=== PATIENT | female | born 1945 | race Caucasian/White ===

== ENCOUNTER 2017-10-25 07:23 | Inpatient (IN) | payer OTHER ==
[~2017-10-25] VITALS: Ht 170.2 cm; Wt 82.1 kg
[2017-10-25 08:05] LABS: BASOPHIL (%) 0.7 % (0-1); BASOPHIL COUNT 0.1 K/uL (0-0.1); EOSINOPHIL (%) 2.4 % (0-5); EOSINOPHIL COUNT 0.2 K/uL (0-0.3); HEMATOCRIT 44.5 % (36.0-46.0); HEMOGLOBIN 14.7 G/DL (11.9-15.5); IMMATURE GRANULOCYTE (%) 0.3 % (0.0-0.7); LYMPHOCYTE (%) 52.5 % (15-42); LYMPHOCYTE COUNT 3.8 K/uL (1.0-2.8); MCH 30.6 PG (29.0-34.0); MCV 92.7 FL (83-99); MONOCYTE (%) 6.1 % (3-12); MONOCYTE COUNT 0.4 K/uL (0-0.8); NEUTROPHIL COUNT 2.7 K/uL (1.8-6.4); PLATELET COUNT 219 K/uL (156-360); RBC DIS.WIDTH-CV 13.2 % (11.8-14.6); RBC DIS.WIDTH-SD 44.9 % (39-53); WHITE BLOOD COUNT 7.2 K/uL (4.1-10.2)
[2017-10-25 08:29] LABS: ALBUMIN 4.2 G/DL (3.2-4.8); CHLORIDE 104 MEQ/L (99-109); POTASSIUM 3.9 MEQ/L (3.7-5.4); SODIUM 141 MEQ/L (136-147); TOTAL BILIRUBIN 0.3 MG/DL (0.0-1.0)
[2017-10-25 08:35] LABS: ALKALINE PHOSPHATASE 96 IU/L (3-129); ALT (GPT) 22 IU/L (3-49); AST (GOT) 22 IU/L (2-34); CREATININE 0.8 MG/DL (0.6-1.3); GFR ESTIMATE (CALCULATED) > 59 mL/min/; GLUCOSE 132 mg/dL (70-99); HDL CHOLESTEROL 37 MG/DL (Desirable>=50); LDL CHOLESTEROL 182 mg/dL (Desirable<100); NON-HDL CHOLESTEROL 210 mg/dL (Desirable<160); TOTAL CHOLESTEROL 247 mg/dL (Desirable<200); TOTAL PROTEIN 7.3 G/DL (6.4-8.3); TRIGLYCERIDES 141 MG/DL (Normal: <150); UREA NITROGEN (BUN) 9 mg/dL (9-23)
[2017-10-25 09:10] LABS: Estimated Average Glucose 137 mg/dL (70-123); HEMOGLOBIN A1c (GLYCOHEMOGLOB) 6.4 % HGB (Below 5.7)
[2017-10-25 09:16] LABS: APPEARANCE CLEAR ((CLEAR)); BILIRUBIN NEGATIVE; BLOOD NEGATIVE; COLOR YELLOW ((YELLOW)); GLUCOSE (STRIP) NEGATIVE; KETONES NEGATIVE; LEUKOCYTES NEGATIVE; NITRITE NEGATIVE; PROTEIN (STRIP) NEGATIVE; UCUL ADDED? NO; UROBILINOGEN 0.2 MG/DL (0.2-1.0)
[2017-10-25 09:25] LABS: TROP-I INTERPRETATION NEGATIVE; TROPONIN-I < 0.01 ng/mL (0.0-0.30)
[2017-10-25] MEDS ORDERED: OMEPRAZOLE40 M1 PO (11:01)
[2017-10-25] MEDS ORDERED: DULOXETINE HCL60 MG PO (11:01)
[2017-10-25] MEDS ORDERED: FISH OIL 1,0001 EAC7 PO (11:02)
[2017-10-25] MEDS ORDERED: TYLENOL EXTRA500 MG PO (11:02)
[2017-10-25] MEDS ORDERED: GLUCOSAMINE-CH1 EA45 PO (11:02)
[2017-10-25 13:10] VITALS: BP 143/74
[2017-10-25 16:59] VITALS: BP 141/68
[2017-10-25 19:53] VITALS: BP 131/60
[2017-10-25 23:37] VITALS: BP 117/61
[2017-10-26 03:37] VITALS: BP 120/64
[2017-10-26 07:59] VITALS: BP 140/75
[2017-10-26 08:57] LABS: HEMATOCRIT 39.6 % (36.0-46.0); HEMOGLOBIN 12.8 G/DL (11.9-15.5); MCH 29.9 PG (29.0-34.0); MCHC 32.3 G/DL (30.0-36.0); MCV 92.5 FL (83-99); PLATELET COUNT 179 K/uL (156-360); RBC DIS.WIDTH-CV 13.3 % (11.8-14.6); RBC DIS.WIDTH-SD 45.6 % (39-53); RED BLOOD COUNT 4.28 M/uL (3.80-5.20); WHITE BLOOD COUNT 5.5 K/uL (4.1-10.2)
[2017-10-26 09:29] LABS: CHLORIDE 108 MEQ/L (99-109); CREATININE 0.7 MG/DL (0.6-1.3); GFR ESTIMATE (CALCULATED) > 59 mL/min/; GLUCOSE 116 mg/dL (70-99); POTASSIUM 4.2 MEQ/L (3.7-5.4); SODIUM 143 MEQ/L (136-147); UREA NITROGEN (BUN) 7 mg/dL (9-23)
[2017-10-26 10:01] LABS: THYROTROPIN (TSH) 0.41 MIU/L (0.4-5.5)
[2017-10-26 12:12] VITALS: BP 124/60
[2017-10-26 15:59] VITALS: BP 126/70
[2017-10-26 23:38] VITALS: BP 128/58
[2017-10-27 03:24] VITALS: BP 125/59
[2017-10-27 07:02] VITALS: BP 126/73
[2017-10-27] MEDS ORDERED: ASPIR-LOW81 MG PO (09:39)
[2017-10-27] MEDS ORDERED: CLOPIDOGREL75 MG PO (09:39)
[2017-10-27] MEDS ORDERED: ATORVASTATIN CA80 MG PO (09:39)
[2017-10-27] MEDS ORDERED: NICOTINE PATCH1 EAC2 TD (09:39)
[2017-10-27 11:05] VITALS: BP 123/69
[2017-10-27] MEDS ORDERED: PEPCID20 MG PO (15:30)
[2017-10-27] MEDS ORDERED: HEPARIN LO100 UNIT/7 IV (15:32)
[2017-10-27] MEDS ORDERED: ZOFRAN4 MG/2 ML IV (15:33)
== END 2017-10-27 13:26 | DRG 66 ==
LOC: EME 07:23 → 5SOUTH 10:14 → EDOF 10:14 → ENRESERV 10:24 → EDOF 10:50 → ENRESERV 11:07 → 5SOUTH 12:43
PROVIDERS: Emergency Medicine; Hospitalist
DX: I63.132 Cerebral infarction due to embolism of left carotid artery (principal); I10 Essential (primary) hypertension; E11.9 Type 2 diabetes mellitus without complications; K21.9 Gastro-esophageal reflux disease without esophagitis; E78.5 Hyperlipidemia, unspecified; G89.29 Other chronic pain; M54.9 Dorsalgia, unspecified; F17.210 Nicotine dependence, cigarettes, uncomplicated; Z96.1 Presence of intraocular lens; Z85.42 Personal history of malignant neoplasm of other parts of uterus; Z90.710 Acquired absence of both cervix and uterus
CPT/HCPCS: 70450; 70496; 70498; 70551; 71020; 80048; 80053; 80061; 81003; 82948; 83036; 84443; 84484; 85025; 85027; 85730; 92610 GN; 93005; 93306; 93880; 97530 GO; 99281; 99285; J7030

== ENCOUNTER 2017-10-27 08:44 | Inpatient (IN) | payer OTHER ==
[~2017-10-27] VITALS: Ht 170.2 cm; Wt 80.5 kg
[~2017-10-27 08:44] MED LIST: DULOXETINE HCL60 MG PO; FISH OIL 1,0001 EAC7 PO; GLUCOSAMINE-CH1 EA45 PO; OMEPRAZOLE40 M1 PO; TYLENOL EXTRA500 MG PO
[2017-10-27] MEDS ORDERED: NICOTINE PATCH1 EAC2 TD (09:39)
[2017-10-27] MEDS ORDERED: ASPIR-LOW81 MG PO (09:39)
[2017-10-27] MEDS ORDERED: ATORVASTATIN CA80 MG PO (09:39)
[2017-10-27] MEDS ORDERED: CLOPIDOGREL75 MG PO (09:39)
[2017-10-27 13:53] VITALS: BP 134/72
[2017-10-27] MEDS ORDERED: PEPCID20 MG PO (15:30)
[2017-10-27] MEDS ORDERED: HEPARIN LO100 UNIT/7 IV (15:32)
[2017-10-27] MEDS ORDERED: ZOFRAN4 MG/2 ML IV (15:33)
[2017-10-27 23:53] VITALS: BP 125/64
[2017-10-28 05:21] VITALS: BP 131/68
[2017-10-28 15:56] VITALS: BP 135/60
[2017-10-29 05:18] VITALS: BP 134/61
[2017-10-29 06:20] LABS: BASOPHIL (%) 0.4 % (0-1); EOSINOPHIL COUNT 0.1 K/uL (0-0.3); HEMATOCRIT 43.2 % (36.0-46.0); HEMOGLOBIN 14.1 G/DL (11.9-15.5); IMMATURE GRANULOCYTE (%) 0.3 % (0.0-0.7); LYMPHOCYTE (%) 37.2 % (15-42); LYMPHOCYTE COUNT 2.7 K/uL (1.0-2.8); MCH 30.2 PG (29.0-34.0); MCHC 32.6 G/DL (30.0-36.0); MCV 92.5 FL (83-99); MONOCYTE (%) 7.3 % (3-12); MONOCYTE COUNT 0.5 K/uL (0-0.8); NEUTROPHIL (%) 52.8 % (45-76); NEUTROPHIL COUNT 3.8 K/uL (1.8-6.4); PLATELET COUNT 188 K/uL (156-360); RBC DIS.WIDTH-CV 13.4 % (11.8-14.6); RBC DIS.WIDTH-SD 45.8 % (39-53); RED BLOOD COUNT 4.67 M/uL (3.80-5.20); WHITE BLOOD COUNT 7.1 K/uL (4.1-10.2)
[2017-10-29 06:57] LABS: ALKALINE PHOSPHATASE 79 IU/L (3-129); ALT (GPT) 26 IU/L (3-49); AST (GOT) 20 IU/L (2-34); CHLORIDE 104 MEQ/L (99-109); CREATININE 0.8 MG/DL (0.6-1.3); GFR ESTIMATE (CALCULATED) > 59 mL/min/; GLUCOSE 116 mg/dL (70-99); POTASSIUM 4.4 MEQ/L (3.7-5.4); SODIUM 139 MEQ/L (136-147); TOTAL PROTEIN 6.3 G/DL (6.4-8.3); UREA NITROGEN (BUN) 18 mg/dL (9-23)
[2017-10-29 06:59] LABS: TOTAL BILIRUBIN 0.6 MG/DL (0.0-1.0)
[2017-10-29 16:04] VITALS: BP 131/64
[2017-10-30 06:09] VITALS: BP 119/60
[2017-10-30 15:53] VITALS: BP 124/59
[2017-10-31 05:48] VITALS: BP 107/53
[2017-10-31 15:25] VITALS: BP 147/75
[2017-10-31] MEDS ORDERED: TYLENOL REGULA325 MG PO (16:54)
[2017-10-31] MEDS ORDERED: LOVENOX40 MG/0.4 SC (16:55)
[2017-11-01] MEDS ORDERED: TRAMADOL HCL50 MG PO (13:29)
== END 2017-10-31 16:30 | disposition home health service (06) | DRG 945 ==
LOC: 3WEST 08:44
PROVIDERS: Psychiatry & Neurology Neurology
PROC: F07M7ZZ Manual Therapy Techniques Treatment of Musculoskeletal System - Whole Body (ICD-10-PCS; principal; 2017-10-27)
DX: R53.1 Weakness (principal); I63.9 Cerebral infarction, unspecified; I65.22 Occlusion and stenosis of left carotid artery; F17.200 Nicotine dependence, unspecified, uncomplicated; E11.9 Type 2 diabetes mellitus without complications; E78.5 Hyperlipidemia, unspecified; K21.9 Gastro-esophageal reflux disease without esophagitis; Z82.3 Family history of stroke; Z82.49 Family history of ischemic heart disease and other diseases of the circulatory system
CPT/HCPCS: 70551; 80053; 82948; 85025; 92507 GN; 92523 GN; 92526 GN; 97110 GO; 97530 GP; J1644; J1650; J2720

== ENCOUNTER 2017-10-31 15:50 | Inpatient (IN) | payer OTHER ==
[2017-10-31] VITALS (8 sets, daily range): BP systolic 127–151; BP diastolic 70–91
[~2017-10-31] VITALS: Ht 170.2 cm; Wt 79.6 kg
[~2017-10-31 15:50] MED LIST changes: +ASPIR-LOW81 MG PO; +ATORVASTATIN CA80 MG PO; +CLOPIDOGREL75 MG PO; +HEPARIN LO100 UNIT/7 IV; +NICOTINE PATCH1 EAC2 TD; +PEPCID20 MG PO; +ZOFRAN4 MG/2 ML IV
[2017-10-31] MEDS ORDERED: TYLENOL REGULA325 MG PO (16:54)
[2017-10-31] MEDS ORDERED: LOVENOX40 MG/0.4 SC (16:55)
[2017-11-01] VITALS (16 sets, daily range): BP systolic 105–144; BP diastolic 64–86
[2017-11-01] MEDS ORDERED: TRAMADOL HCL50 MG PO (13:29)
== END 2017-11-01 16:42 | disposition home health service (06) | DRG 38 ==
LOC: 2SOUTH 15:50 → 4WEST 16:55 → 2SOUTH 19:14 → ENRESERV 19:16 → 4WEST 20:29 → CANRESERV 11-01 04:43 → ENRESERV 11-01 04:43 → 4WEST 11-01 16:42
PROC: 03CN0ZZ Extirpation of Matter from Left External Carotid Artery, Open Approach (ICD-10-PCS; principal; 2017-10-31)
PROC: 03CL0ZZ Extirpation of Matter from Left Internal Carotid Artery, Open Approach (ICD-10-PCS; principal; 2017-10-31)
DX: I65.22 Occlusion and stenosis of left carotid artery (principal); I69.351 Hemiplegia and hemiparesis following cerebral infarction affecting right dominant side; K21.9 Gastro-esophageal reflux disease without esophagitis; I10 Essential (primary) hypertension; M79.7 Fibromyalgia; R73.03 Prediabetes; F17.200 Nicotine dependence, unspecified, uncomplicated; Z82.3 Family history of stroke; Z82.49 Family history of ischemic heart disease and other diseases of the circulatory system
CPT/HCPCS: 87641; 93005; J0131; J0690; J1100; J1650; J2405; J2795; J3010; J7120

== ENCOUNTER 2018-05-25 10:07 | Emergency (ER) | payer OTHER ==
[~2018-05-25] VITALS: Ht 170.2 cm; Wt 85.0 kg
[~2018-05-25 10:07] MED LIST changes: +LOVENOX40 MG/0.4 SC; +TRAMADOL HCL50 MG PO; +TYLENOL REGULA325 MG PO
[2018-05-25 11:40] LABS: HEMATOCRIT 38.8 % (36.0-46.0); HEMOGLOBIN 12.9 G/DL (11.9-15.5); MCH 29.9 PG (29.0-34.0); MCHC 33.2 G/DL (30.0-36.0); MCV 89.8 FL (83-99); NRBC (%) 0.3 /100 WBC (0-0); PLATELET COUNT 172 K/uL (156-360); RBC DIS.WIDTH-CV 13.4 % (11.8-14.6); RED BLOOD COUNT 4.32 M/uL (3.80-5.20); WHITE BLOOD COUNT 6.5 K/uL (4.1-10.2)
[2018-05-25 11:54] LABS: CHLORIDE 105 mEq/L (99-109); POTASSIUM 4.3 mEq/L (3.7-5.4); SODIUM 142 mEq/L (136-147)
[2018-05-25 11:56] LABS: GLUCOSE 119 mg/dL (70-99)
[2018-05-25 12:00] LABS: CREATININE 0.8 mg/dL (0.6-1.3); GFR ESTIMATE (CALCULATED) > 59 mL/min/
[2018-05-25 12:01] LABS: UREA NITROGEN (BUN) 14 mg/dL (9-23)
[2018-05-25 13:00] VITALS: BP 142/85
== END 2018-05-25 13:00 | disposition home or self-care (01) ==
LOC: EME 10:07
DX: R25.2 Cramp and spasm (principal); R00.1 Bradycardia, unspecified; G31.9 Degenerative disease of nervous system, unspecified; I67.89 Other cerebrovascular disease; I10 Essential (primary) hypertension; E11.51 Type 2 diabetes mellitus with diabetic peripheral angiopathy without gangrene; E78.5 Hyperlipidemia, unspecified; F31.9 Bipolar disorder, unspecified; F32.9 Major depressive disorder, single episode, unspecified; Z87.891 Personal history of nicotine dependence; Z86.73 Personal history of transient ischemic attack (TIA), and cerebral infarction without residual deficits; Z86.69 Personal history of other diseases of the nervous system and sense organs; Z85.9 Personal history of malignant neoplasm, unspecified; Z98.890 Other specified postprocedural states; Z90.49 Acquired absence of other specified parts of digestive tract; Z90.710 Acquired absence of both cervix and uterus; Z90.721 Acquired absence of ovaries, unilateral; Z88.0 Allergy status to penicillin; Z88.5 Allergy status to narcotic agent; Z88.8 Allergy status to other drugs, medicaments and biological substances
CPT/HCPCS: 70450; 71046; 80048; 85027; 93005; 99281; 99285